=== PATIENT | female | born 1980 | race Caucasian/White ===

== ENCOUNTER 2017-10-10 16:52 | Emergency (ER) | payer BC ==
[2017-10-10 17:17] VITALS: BP 130/79
--- NOTE | 2017-10-10 17:24 | EDM.PDOC ---
ED HPI GENERAL MEDICAL PROBLEM - General Chief Complaint: Skin Complaint Stated Complaint: ILLNESS Time Seen by Provider: 10/10/17 17:20 Source of Information: Reports: Patient, Family History Limitations: Reports: No Limitations - History of Present Illness INITIAL COMMENTS - FREE TEXT/NARRATIVE: pt was seen in the clinic twice. The last time she was switched off of zovirax and she was put on another antiviral. She was just placed on predisone. She is on tramodol for pain and that is not working for her pain. Onset: Gradual, Other ( She has had the shingles for 1 week. ) Duration: Day(s):, Other ( not improving. ) Associated Symptoms: Reports: No Other Symptoms Right Ear Pain Score (Numeric/FACES): 7 - Related Data Allergies Allergy/AdvReac Type Severity Reaction Status Date / Time amoxicillin Allergy Rash Verified 10/10/17 17:08 cefprozil [From Cefzil] Allergy Rash Verified 10/10/17 17:08 duloxetine [From Cymbalta] Allergy Swelling Verified 10/10/17 17:08 NSAIDS (Non-Steroidal Allergy Swelling Verified 10/10/17 17:08 Anti-Inflamma Penicillins Allergy Rash Verified 10/10/17 17:08 pregabalin [From Lyrica] Allergy Swelling Verified 10/10/17 17:08 Home Meds: Home Meds Methocarbamol 750 mg PO Q6H PRN 03/16/16 [History] Cholecalciferol (Vitamin D3) [Vitamin D3] 1 tab PO DAILY 10/10/17 [History] Famciclovir 250 mg PO TID 10/10/17 [History] Fluticasone Propionate [Flonase] 1 spray NS BEDTIME PRN 10/10/17 [History] L.acidoph,Paracasei, B.lactis [Probiotic] 1 tab PO DAILY 10/10/17 [History] Multivitamin [Multi-Vitamin Daily] 1 tab PO DAILY 10/10/17 [History] Vitamin E 1 tab PO DAILY 10/10/17 [History] predniSONE [predniSONE] 20 mg PO DAILY 10/10/17 [History] traMADol HCl [Tramadol HCl] 50 mg PO Q6H 10/10/17 [History] Past Medical History HEENT History: Reports: Other (See Below) Other HEENT History: recurring shingles right ear and onto right face generally 1-2 times per year 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 Musculoskeletal History: Reports: Osteoarthritis, Other (See Below) Other Musculoskeletal History: lyme disease, chronic knee pain Neurological History: Reports: Other (See Below) Other Neuro History: bilateral Martinez's palsy, bilateral trigeminal neuralgia with surgery Immunologic History: Reports: Other (See Below) Other Immunologic History: lyme disease - Infectious Disease History Infectious Disease History: Reports: Chicken Pox, Shingles Social & Family History - Tobacco Use Smoking Status *Q: Never Smoker Years of Tobacco use: 10 Used Tobacco, but Quit: Yes Month Tobacco Last Used: nov Second Hand Smoke Exposure: No - Caffeine Use Caffeine Use: Reports: Coffee, Soda - Alcohol Use Days Per Week of Alcohol Use: 3 Number of Drinks Per Day: 2 Total Drinks Per Week: 6 - Recreational Drug Use Recreational Drug Use: No ED ROS GENERAL - Review of Systems Review Of Systems: See Below Constitutional: Reports: No Symptoms HEENT: Reports: Other ( rt facial pain from the shingles. ) Respiratory: Reports: No Symptoms Cardiovascular: Reports: No Symptoms Endocrine: Reports: No Symptoms GI/Abdominal: Reports: No Symptoms : Reports: No Symptoms Musculoskeletal: Reports: No Symptoms Skin: Reports: Rash ( facial pain), Other ( ) ED EXAM, SKIN/RASH Exam: See Below Text/Narrative:: pt has a rash on the rt side of her face. She has a history of recurrent shingles. She has very severe pain which is not being covered by the tramodol. She has not had a reoccurence for 1 year. Exam Limited By: No Limitations General Appearance: Alert, Anxious, Moderate Distress Ears: Normal TMs, Other (pt has fluid behind the rt drum. ) Nose: Normal Inspection Throat/Mouth: Normal Inspection Head: Other ( she has a rash which is improving because she has been on zovirax. She was just put on predisone. ) Neck: Normal Inspection Respiratory/Chest: No Respiratory Distress Cardiovascular: Regular Rate, Rhythm GI/Abdominal: Soft, Non-Tender Rectal (Female) Exam: Deferred Back Exam: Normal Inspection Extremities: Normal Inspection Neurological: Alert, Oriented, Normal Cognition Psychiatric: Anxious, Other ( uncomfortable appearing. ) Course - Vital Signs Last Recorded V/S: Last Vital Signs Temp 36.9 C 10/10/17 17:16 Pulse 112 H 10/10/17 17:16 Resp 16 10/10/17 17:16 BP 130/79 10/10/17 17:16 Pulse Ox 97 10/10/17 17:16 Departure - Departure Time of Disposition: 17:35 Disposition: Home, Self-Care 01 Condition: Fair Clinical Impression: Shingles - Discharge Information Referrals: Maribel Brar BREAD MOLDER [Primary Care Provider] - Forms: ED Department Discharge Care Plan Goals: cont all meds the same. for severe pain norco 7.5/325 # 10
[2017-10-10] MEDS ORDERED: Acetaminophen/HYDROcodone 325-5 MG Tab PO ONE (17:34)
== END 2017-10-10 17:58 | disposition home or self-care (01) ==
LOC: JP.ED 16:52
DX: B02.9 Zoster without complications (principal); Z87.891 Personal history of nicotine dependence; Z79.899 Other long term (current) drug therapy; Z88.0 Allergy status to penicillin; Z88.1 Allergy status to other antibiotic agents; Z88.8 Allergy status to other drugs, medicaments and biological substances
CPT/HCPCS: 99283; A9270

== ENCOUNTER 2018-03-18 19:33 | Emergency (ER) | payer BC ==
[2018-03-18 20:03] VITALS: BP 127/80
--- NOTE | 2018-03-18 20:25 | EDM.PDOC ---
ED HPI GENERAL MEDICAL PROBLEM - General Chief Complaint: Skin Complaint Stated Complaint: RIGHT EAR PAIN WITH SHINGLES Time Seen by Provider: 03/18/18 20:05 Source of Information: Reports: Patient, Old Records, RN History Limitations: Reports: No Limitations - History of Present Illness INITIAL COMMENTS - FREE TEXT/NARRATIVE: 37 yo female states she gets shingles near or in the R ear every year at this time. Has not had a shingles vaccine. Is taking antiviral medications already. Has an appt to see a neurologist about this in early March. No fever. Has some nausea from the pain. Onset: Gradual Onset Date: 03/17/18 Duration: Hour(s):, Constant Location: Reports: Face (R side) Quality: Reports: Burning Severity: Moderate Improves with: Reports: Other (Had a couple Newton that helped. Tramadol not helping. Gabapentin only helped a little with very high doses in the past. ) Worsens with: Reports: None Context: Reports: Other (Hx of bilateral trigeminal neuralgia and shingles to the R side of her face. 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 (see below) (Tramadol without relief.) - Related Data Allergies Allergy/AdvReac Type Severity Reaction Status Date / Time amoxicillin Allergy Rash Verified 03/18/18 19:56 cefprozil [From Cefzil] Allergy Rash Verified 03/18/18 19:56 duloxetine [From Cymbalta] Allergy Swelling Verified 03/18/18 19:56 NSAIDS (Non-Steroidal Allergy Swelling Verified 03/18/18 19:56 Anti-Inflamma Penicillins Allergy Rash Verified 03/18/18 19:56 pregabalin [From Lyrica] Allergy Swelling Verified 03/18/18 19:56 Home Meds: Home Meds Cholecalciferol (Vitamin D3) [Vitamin D3] 1 tab PO DAILY 10/10/17 [History] Fluticasone Propionate [Flonase] 1 spray NS BEDTIME PRN 10/10/17 [History] L.acidoph,Paracasei, B.lactis [Probiotic] 1 tab PO DAILY 10/10/17 [History] Multivitamin [Multi-Vitamin Daily] 1 tab PO DAILY 10/10/17 [History] Vitamin E 1 tab PO DAILY 10/10/17 [History] predniSONE 20 mg PO DAILY 10/10/17 [History] traMADol HCl [Tramadol HCl] 50 mg PO Q6H 10/10/17 [History] valACYclovir HCl [valACYclovir] 1 tab PO TID 03/18/18 [History] Past Medical History HEENT History: Reports: Other (See Below) Other HEENT History: recurring shingles right ear and onto right face generally 1-2 times per year 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 Musculoskeletal History: Reports: Osteoarthritis, Other (See Below) Other Musculoskeletal History: lyme disease, chronic knee pain Neurological History: Reports: Other (See Below) Other Neuro History: bilateral Martinez's palsy, bilateral trigeminal neuralgia with surgery Psychiatric History: Reports: ADD Immunologic History: Reports: Other (See Below) Other Immunologic History: lyme disease - Infectious Disease History Infectious Disease History: Reports: Chicken Pox, Shingles - Past Surgical History Musculoskeletal Surgical History: Reports: Arthroscopic Knee Social & Family History - Tobacco Use Smoking Status *Q: Never Smoker Years of Tobacco use: 10 Used Tobacco, but Quit: Yes Month/Year Tobacco Last Used: nov Second Hand Smoke Exposure: No - Caffeine Use Caffeine Use: Reports: Coffee, Soda - Alcohol Use Days Per Week of Alcohol Use: 3 Number of Drinks Per Day: 2 Total Drinks Per Week: 6 - Recreational Drug Use Recreational Drug Use: No ED ROS GENERAL - Review of Systems Review Of Systems: See Below Constitutional: Reports: No Symptoms HEENT: Reports: Other (Pain near/in the R ear.) Respiratory: Reports: No Symptoms Cardiovascular: Reports: No Symptoms Skin: Reports: Other (gets one or two small lesions in her R ear typically.) Neurological: Reports: No Symptoms ED EXAM, SKIN/RASH Exam: See Below Exam Limited By: No Limitations General Appearance: Alert, WD/WN, No Apparent Distress Eye Exam: Bilateral Eye: Normal Inspection Ears: Normal External Exam, Normal Canal, Hearing Grossly Normal, Normal TMs, Other (no rash noted.) Nose: Normal Inspection, Normal Mucosa, No Blood Throat/Mouth: Normal Inspection, Normal Lips, Normal Oropharynx, Normal Voice, No Airway Compromise Head: Atraumatic, Normocephalic Neck: Normal Inspection, Supple, Non-Tender Neurological: Alert, Oriented, CN II-XII Intact, Normal Cognition, No Motor/ Sensory Deficits Psychiatric: Normal Affect, Normal Mood Skin: Warm, Dry, Intact, Normal Color, No Rash Course - Vital Signs Last Recorded V/S: Last Vital Signs Temp 36.0 C 03/18/18 20:02 Pulse 95 03/18/18 20:02 Resp 14 03/18/18 20:02 BP 127/80 03/18/18 20:02 Pulse Ox 98 03/18/18 20:02 Departure - Departure Time of Disposition: 20:26 Disposition: Home, Self-Care 01 Condition: Good Clinical Impression: Right facial pain - Discharge Information Referrals: PCP,None [Primary Care Provider] - Forms: ED Department Discharge Additional Instructions: Take Newton as directed. F/U with your primary care provider on Tuesday. Keep your neurology appt.
== END 2018-03-18 20:26 | disposition home or self-care (01) ==
LOC: JP.ED 19:33
DX: R51 Headache (principal); Z87.891 Personal history of nicotine dependence; M19.90 Unspecified osteoarthritis, unspecified site; Z79.899 Other long term (current) drug therapy; Z88.0 Allergy status to penicillin; Z88.8 Allergy status to other drugs, medicaments and biological substances; Z88.1 Allergy status to other antibiotic agents
CPT/HCPCS: 99283

== ENCOUNTER 2019-06-25 16:25 | Emergency (ER) | payer BC ==
--- NOTE | 2019-06-25 17:11 | EDM.PDOC ---
ED HPI GENERAL MEDICAL PROBLEM - General Chief Complaint: Allergic Reaction Stated Complaint: BEE STING Time Seen by Provider: 06/25/19 16:50 Source of Information: Reports: Patient History Limitations: Reports: No Limitations - History of Present Illness INITIAL COMMENTS - FREE TEXT/NARRATIVE: Alert pleasant 39 year old female presents to ER after bee sting left distal third of forearm while playing with dog and sitting in her garden. Patient was feeling anxious and shaking therefore concerned regarding acute allergic reaction to bee sting per history. Patient went to give herself an EPI injection but the injector went off in her right thumb causing pain, cool to temperature and pale discoloration. Patient denies fever, facial swelling, tongue swelling, cough or difficulty breathing. Patient did give herself an other EPI injection in her left thigh. Patient has continued anxious feeling and increased heart rate due to allergic reaction and EPI dosing. Patient was given a ride to ER by her . Headache Pain Score (Numeric/FACES): 2 - Related Data Allergies Allergy/AdvReac Type Severity Reaction Status Date / Time amoxicillin Allergy Rash Verified 06/25/19 16:38 cefprozil [From Cefzil] Allergy Rash Verified 06/25/19 16:38 duloxetine [From Cymbalta] Allergy Swelling Verified 06/25/19 16:38 NSAIDS (Non-Steroidal Allergy Swelling Verified 06/25/19 16:38 Anti-Inflamma Penicillins Allergy Rash Verified 06/25/19 16:38 pregabalin [From Lyrica] Allergy Swelling Verified 06/25/19 16:38 Home Meds: Home Meds Cholecalciferol (Vitamin D3) [Vitamin D3] 1 tab PO DAILY 10/10/17 [History] Fluticasone Propionate [Flonase] 1 spray NS BEDTIME PRN 10/10/17 [History] L.acidoph,Paracasei, B.lactis [Probiotic] 1 tab PO DAILY 10/10/17 [History] Multivitamin [Multi-Vitamin Daily] 1 tab PO DAILY 10/10/17 [History] Vitamin E 1 tab PO DAILY 10/10/17 [History] predniSONE 20 mg PO DAILY 10/10/17 [History] traMADol HCl [Tramadol HCl] 50 mg PO Q6H PRN 10/10/17 [History] valACYclovir HCl [valACYclovir] 1 tab PO TID PRN 04/21/18 [History] EPINEPHrine [Epipen 2-Joe] 0.3 mg IJ DAILY PRN 30 Days #2 ml 06/25/19 [Rx] Past Medical History HEENT History: Reports: Other (See Below) Other HEENT History: recurring shingles right ear and onto right face generally 1-2 times per year Respiratory History: Reports: Asthma Other Respiratory History: as a child Gastrointestinal History: Reports: Other (See Below) 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 Musculoskeletal History: Reports: Osteoarthritis, Other (See Below) Other Musculoskeletal History: lyme disease, chronic knee pain Neurological History: Reports: Other (See Below) Other Neuro History: bilateral Martinez's palsy, bilateral trigeminal neuralgia with surgery Psychiatric History: Reports: ADD Immunologic History: Reports: Other (See Below) Other Immunologic History: lyme disease - Infectious Disease History Infectious Disease History: Reports: Shingles - Past Surgical History HEENT Surgical History: Reports: LASIK GI Surgical History: Reports: Colonoscopy Musculoskeletal Surgical History: Reports: Arthroscopic Knee Social & Family History - Tobacco Use Smoking Status *Q: Never Smoker Second Hand Smoke Exposure: No - Caffeine Use Caffeine Use: Reports: Soda Other Caffeine Use: 4 cans/bottles a day - Alcohol Use Days Per Week of Alcohol Use: 1 Number of Drinks Per Day: 2 Total Drinks Per Week: 2 - Recreational Drug Use Recreational Drug Use: No ED ROS ALLERGIC REACTION - Review of Systems Review Of Systems: ROS reveals no pertinent complaints other than HPI. ED EXAM GENERAL NO PERIP PULSE - Physical Exam Exam: See Below Exam Limited By: No Limitations General Appearance: Alert, WD/WN, No Apparent Distress Eye Exam: Bilateral Eye: EOMI, PERRL Ears: Normal External Exam Nose: Normal Inspection, Normal Mucosa Throat/Mouth: Normal Inspection, Normal Lips, Normal Teeth, Normal Gums, Normal Oropharynx, Normal Voice, No Airway Compromise Head: Atraumatic, Normocephalic Neck: Normal Inspection, Supple, Non-Tender, Full Range of Motion Respiratory/Chest: No Respiratory Distress, Lungs Clear, Normal Breath Sounds, No Accessory Muscle Use Cardiovascular: Normal Peripheral Pulses, Regular Rate, Rhythm GI/Abdominal: Soft, Non-Tender Extremities: Normal Inspection, Normal Range of Motion, Normal Capillary Refill , Arm Pain (Bee Sting left proximal forearm extensor surface (no stinger) and swelling/erythema improving), Mottled (Left Thumb due to EPI injection: cool to touch, decreased capillary refill and site of injection in fat pad of finger) Neurological: Alert, Oriented, CN II-XII Intact, Normal Cognition, Normal Gait, No Motor/Sensory Deficits Psychiatric: Normal Affect, Normal Mood Skin Exam: Warm, Dry, Intact, Normal Color, No Rash Course - Vital Signs Last Recorded V/S: Last Vital Signs Temp 36.7 C 06/25/19 16:42 Pulse 104 H 06/25/19 17:53 Resp 16 06/25/19 16:42 BP 131/75 06/25/19 17:53 Pulse Ox 99 06/25/19 17:53 - Orders/Labs/Meds Meds: Medications Discontinued Medications Generic Name Dose Route Start Last Admin Trade Name Freq PRN Reason Stop Dose Admin Diphenhydramine HCl 50 mg 06/25/19 17:28 06/25/19 17:40 Benadryl PO 06/25/19 17:29 50 mg ONETIME ONE Administration Departure - Departure Time of Disposition: 18:03 Disposition: Home, Self-Care 01 Clinical Impression: Bee sting, Bee sting allergy - Discharge Information Prescriptions: EPINEPHrine [Epipen 2-Joe] 0.3 mg IJ DAILY PRN 30 Days #2 ml PRN Reason: Allergies Instructions: Epinephrine Injection, Anaphylactic Reaction, Adult, Bee, Wasp, or Hornet Sting, Adult Referrals: Mohsen Lim NP [Primary Care Provider] - Forms: ED Department Discharge Additional Instructions: 1. Benadryl 25-50 mg every 6 hours as needed for swelling due to allergic reaction. 2. Ice to bee sting to help with swelling. 3. Warm compress to left Thumb (site of EPI Injection) error to help improve blood flow. 4. Ibuprofen 600-800mg every 6 hours with food as needed for pain and swelling. 5. Call PCP for recheck in 1-2 weeks if concerns or additional questions related to bee sting allergy or EPI Pen medication needs. THE DISCHARGE INSTRUCTIONS ARE INTENDED A COMPLEMENT TO AND NOT A REPLACEMENT FOR THE VERBAL INSTRUCTIONS THAT I HAVE PROVIDED YOU TODAY. AFTER GOING OVER THE PLAN OF CARE AND PROVIDING YOU WITH THE VERBAL INSTRUCTIONS. YOU HAVE HAD THE OPPORTUNITY TO ASK FURTHER QUESTIONS AND TO CLARIFY UNCERTAINTIES. THANK YOU FOR ALLOWING US TO ASSIST WITH YOUR MEDICAL CONCERNS AND NEEDS. - Problem List & Annotations (1) Bee sting SNOMED Code(s): 077335449, 818555516 Code(s): T63.441A - TOXIC EFFECT OF VENOM OF BEES, ACCIDENTAL, INIT Status : Acute Current Visit: Yes (2) Bee sting allergy SNOMED Code(s): 183836230 Code(s): Z91.030 - BEE ALLERGY STATUS Status: Acute Current Visit: Yes
[2019-06-25] MEDS ORDERED: diphenhydrAMINE 25 MG Cap PO ONE (17:28)
[2019-06-25 17:57] VITALS: BP 131/75; PULSE 104
== END 2019-06-25 18:35 | disposition home or self-care (01) ==
LOC: JP.ED 16:25
DX: T63.441A Toxic effect of venom of bees, accidental (unintentional), initial encounter (principal); Z91.030 Bee allergy status; Z88.1 Allergy status to other antibiotic agents; Z88.6 Allergy status to analgesic agent; Z88.8 Allergy status to other drugs, medicaments and biological substances; Z88.0 Allergy status to penicillin; Z79.899 Other long term (current) drug therapy
CPT/HCPCS: 99282; A9270

== ENCOUNTER 2021-06-11 07:14 | Emergency (ER) | payer BC ==
[2021-06-11] MEDS ORDERED: methylPREDNISolone Sodium Succinate 125 MG/2 ML SDV IM ONE (07:48)
--- NOTE | 2021-06-11 07:50 | EDM.PDOC ---
ED HPI GENERAL MEDICAL PROBLEM - General Chief Complaint: Allergic Reaction Stated Complaint: ALLERGIC REACTION Time Seen by Provider: 06/11/21 07:42 Source of Information: Reports: Patient, RN Notes Reviewed History Limitations: Reports: No Limitations - History of Present Illness INITIAL COMMENTS - FREE TEXT/NARRATIVE: 41-year-old female presents emergency department today following bee sting, she was outside stung three times she believes that while she does have allergic reaction to bees did have a feeling of shortness of breath and throat tightening does carry an EpiPen and used her EpiPen in her thigh also chewed up three Benadryl. She states she feels significantly better breathing is not quite back to normal throat feels fine. - Related Data Allergies Allergy/AdvReac Type Severity Reaction Status Date / Time amoxicillin Allergy Rash Verified 06/11/21 07:34 bee venom protein (honey bee) Allergy Anaphylactic Verified 06/11/21 07:34 Shock cefprozil [From Cefzil] Allergy Rash Verified 06/11/21 07:34 duloxetine [From Cymbalta] Allergy Swelling Verified 06/11/21 07:34 NSAIDS (Non-Steroidal Allergy Swelling Verified 06/11/21 07:34 Anti-Inflamma Penicillins Allergy Rash Verified 06/11/21 07:34 pregabalin [From Lyrica] Allergy Swelling Verified 06/11/21 07:34 Home Meds: Home Meds Cholecalciferol (Vitamin D3) [Vitamin D3] 1 tab PO DAILY 10/10/17 [History] Fluticasone Propionate [Flonase] 1 spray NS BEDTIME PRN 10/10/17 [History] L.acidoph,Paracasei, B.lactis [Probiotic] 1 tab PO DAILY 10/10/17 [History] Multivitamin [Multi-Vitamin Daily] 1 tab PO DAILY 10/10/17 [History] traMADol HCl [Tramadol HCl] 50 mg PO Q6H PRN 10/10/17 [History] valACYclovir HCl [valACYclovir] 1 tab PO TID PRN 03/18/18 [History] EPINEPHrine [Epipen 2-Joe] 0.3 mg IJ DAILY PRN 30 Days #2 ml 06/25/19 [Rx] Cetirizine [ZyrTEC] 10 mg PO DAILY 06/11/21 [History] Divalproex Sodium [Depakote] 500 mg PO BID 06/11/21 [History] Past Medical History HEENT History: Reports: Other (See Below) Other HEENT History: recurring shingles right ear and onto right face generally 1-2 times per year Respiratory History: Reports: Asthma Other Respiratory History: as a child Gastrointestinal History: Reports: Other (See Below) 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 Musculoskeletal History: Reports: Osteoarthritis, Other (See Below) Other Musculoskeletal History: lyme disease, chronic knee pain Neurological History: Reports: Other (See Below) Other Neuro History: bilateral Martinez's palsy, bilateral trigeminal neuralgia with surgery Psychiatric History: Reports: ADD Immunologic History: Reports: Other (See Below) Other Immunologic History: lyme disease - Infectious Disease History Infectious Disease History: Reports: Shingles - Past Surgical History HEENT Surgical History: Reports: LASIK GI Surgical History: Reports: Colonoscopy Musculoskeletal Surgical History: Reports: Arthroscopic Knee Social & Family History - Tobacco Use Tobacco Use Status *Q: Never Tobacco User - Caffeine Use Caffeine Use: Reports: Coffee, Energy Drinks, Soda Other Caffeine Use: 4 cans/bottles a day - Recreational Drug Use Recreational Drug Use: No ED ROS ALLERGIC REACTION - Review of Systems Review Of Systems: See Below Constitutional: Reports: No Symptoms HEENT: Reports: Throat Pain, Throat Swelling Respiratory: Reports: Shortness of Breath Cardiovascular: Reports: No Symptoms GI/Abdominal: Reports: No Symptoms ED EXAM GENERAL NO PERIP PULSE - Physical Exam Exam: See Below Exam Limited By: No Limitations General Appearance: Alert, WD/WN, No Apparent Distress Throat/Mouth: Normal Inspection, Normal Lips, Normal Teeth, Normal Gums, Normal Oropharynx, Normal Voice, No Airway Compromise Neck: Normal Inspection, Supple, Non-Tender, Full Range of Motion Respiratory/Chest: No Respiratory Distress, Lungs Clear, Normal Breath Sounds, No Accessory Muscle Use, Chest Non-Tender Cardiovascular: Regular Rate, Rhythm, No Murmur Course - Vital Signs Last Recorded V/S: Last Vital Signs Temp 97 F 06/11/21 07:32 Pulse 113 H 06/11/21 07:54 Resp 16 06/11/21 07:54 BP 124/64 06/11/21 07:54 Pulse Ox 100 06/11/21 07:54 - Orders/Labs/Meds Meds: Medications Discontinued Medications Generic Name Dose Route Start Last Admin Trade Name Freq PRN Reason Stop Dose Admin Methylprednisolone Sodium Succinate 125 mg 06/11/21 07:48 06/11/21 08:08 Methylprednisolone Sodium Succinate 125 Mg/2 Ml Sdv IM 06/11/21 07:49 125 mg ONETIME ONE Administration Departure - Departure Time of Disposition: 08:25 Disposition: Home, Self-Care 01 Condition: Fair Clinical Impression: Bee sting allergy - Discharge Information Instructions: Allergies, Adult, [id number] Referrals: Mohsen Lim CAMP COUNSELOR [Primary Care Provider] - Forms: ED Department Discharge Sepsis Event Note (ED) - Evaluation Sepsis Screening Result: No Definite Risk - Focused Exam Vital Signs: Vital Signs Temp Pulse Resp BP Pulse Ox 06/11/21 07:54 113 H 16 124/64 100 06/11/21 07:32 97 F 109 H 16 147/75 H 98 06/11/21 07:29 97 F 109 H 16 147/75 H 98 - Assessment/Plan Plan: Assessment Acuity = acute Site and laterality = allergic reaction Etiology = bee sting Manifestations = none Location of injury = Home Lab values = none Plan Was provided Solu-Medrol in the emergency department, she does have additional EpiPen follow-up with primary care as needed, recommended observation for 4 hours but she declined 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
[2021-06-11 08:04] VITALS: BP 124/64
[2021-06-11 08:10] VITALS: PULSE 113
== END 2021-06-11 08:33 | disposition home or self-care (01) ==
LOC: JP.ED 07:14
DX: T63.441A Toxic effect of venom of bees, accidental (unintentional), initial encounter (principal); Z88.0 Allergy status to penicillin; Z91.030 Bee allergy status; Z88.8 Allergy status to other drugs, medicaments and biological substances
CPT/HCPCS: 96372; 99282; J2930

== ENCOUNTER 2021-07-12 14:07 | Emergency (ER) | payer BC ==
[2021-07-12] MEDS ORDERED: methylPREDNISolone Sodium Succinate 125 MG/2 ML SDV IM ONE (14:41)
--- NOTE | 2021-07-12 14:46 | EDM.PDOC ---
ED HPI GENERAL MEDICAL PROBLEM - General Chief Complaint: Bite:Animal, Insect Stated Complaint: STUNG BY SOMETHING-ALLERIGC REACTION Time Seen by Provider: 07/12/21 14:41 Source of Information: Reports: Patient History Limitations: Reports: No Limitations - History of Present Illness INITIAL COMMENTS - FREE TEXT/NARRATIVE: pt was stung about 1/2 hour ago by a wasp. She does have a epiopen because she has had reactions in the past. She took her epipen and she took 75 mg of benadryl. She has slight swelling arouind the site. She has no hives. She is feeling dizzy and slightly sob. She has good o2 sats. She was stung about 1 month ago multiple times. Onset: Today, Sudden Duration: Minutes:, Other ( she was stung about 1/2 hour ago. ) Location: Reports: Upper Extremity, Right Associated Symptoms: Reports: No Other Symptoms, Shortness of Breath - Related Data Allergies Allergy/AdvReac Type Severity Reaction Status Date / Time amoxicillin Allergy Rash Verified 07/12/21 14:35 bee venom protein (honey bee) Allergy Anaphylactic Verified 07/12/21 14:35 Shock cefprozil [From Cefzil] Allergy Rash Verified 07/12/21 14:35 duloxetine [From Cymbalta] Allergy Swelling Verified 07/12/21 14:35 NSAIDS (Non-Steroidal Allergy Swelling Verified 07/12/21 14:35 Anti-Inflamma Penicillins Allergy Rash Verified 07/12/21 14:35 pregabalin [From Lyrica] Allergy Swelling Verified 07/12/21 14:35 Home Meds: Home Meds Cholecalciferol (Vitamin D3) [Vitamin D3] 1 tab PO DAILY 10/10/17 [History] Fluticasone Propionate [Flonase] 1 spray NS BEDTIME PRN 10/10/17 [History] L.acidoph,Paracasei, B.lactis [Probiotic] 1 tab PO DAILY 10/10/17 [History] Multivitamin [Multi-Vitamin Daily] 1 tab PO DAILY 10/10/17 [History] traMADol HCl [Tramadol HCl] 50 mg PO Q6H PRN 10/10/17 [History] valACYclovir HCl [valACYclovir] 1 tab PO TID PRN 03/18/18 [History] EPINEPHrine [Epipen 2-Joe] 0.3 mg IJ DAILY PRN 30 Days #2 ml 06/25/19 [Rx] Cetirizine [ZyrTEC] 10 mg PO DAILY 06/11/21 [History] Divalproex Sodium [Depakote] 500 mg PO BID 06/11/21 [History] Past Medical History HEENT History: Reports: Other (See Below) Other HEENT History: recurring shingles right ear and onto right face generally 1-2 times per year Respiratory History: Reports: Asthma Other Respiratory History: as a child Gastrointestinal History: Reports: Other (See Below) 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 Musculoskeletal History: Reports: Osteoarthritis, Other (See Below) Other Musculoskeletal History: lyme disease, chronic knee pain Neurological History: Reports: Other (See Below) Other Neuro History: bilateral Martinez's palsy, bilateral trigeminal neuralgia with surgery Psychiatric History: Reports: ADD Immunologic History: Reports: Other (See Below) Other Immunologic History: lyme disease - Infectious Disease History Infectious Disease History: Reports: Shingles - Past Surgical History HEENT Surgical History: Reports: LASIK GI Surgical History: Reports: Colonoscopy Musculoskeletal Surgical History: Reports: Arthroscopic Knee Social & Family History - Tobacco Use Tobacco Use Status *Q: Unknown Ever Used Tobacco - Caffeine Use Caffeine Use: Reports: Coffee, Energy Drinks, Soda Other Caffeine Use: 4 cans/bottles a day ED ROS GENERAL - Review of Systems Review Of Systems: See Below Constitutional: Reports: Other (pt has dizziness and sob. ) HEENT: Reports: No Symptoms Respiratory: Reports: Shortness of Breath Cardiovascular: Reports: No Symptoms Endocrine: Reports: No Symptoms GI/Abdominal: Reports: No Symptoms : Reports: No Symptoms Musculoskeletal: Reports: No Symptoms ED EXAM, ANIMAL BITE - Physical Exam Exam: See Below Text/Narrative:: pt has a bee sting on the rt upper arm. She is feelingdizzy and slightly sob. She is not sounding wheezy. Exam Limited By: No Limitations General Appearance: Alert, Anxious, Mild Distress Ears: Normal TMs Nose: Normal Inspection Throat/Mouth: Normal Inspection Head: Atraumatic Neck: Normal Inspection Respiratory/Chest: No Respiratory Distress, Other (no definite wheezes) Cardiovascular: Regular Rate, Rhythm GI/Abdominal: Soft, Non-Tender Back Exam: Normal Inspection Extremities: Other ( slight swelling at the bee sting site. ) Neurological: Alert, Oriented, Normal Cognition Psychiatric: Anxious Course - Vital Signs Last Recorded V/S: Last Vital Signs Temp 36.7 C 07/12/21 14:40 Pulse 89 07/12/21 14:40 Resp 16 07/12/21 14:40 BP 126/61 07/12/21 14:40 Pulse Ox 97 07/12/21 14:40 - Orders/Labs/Meds Meds: Medications Discontinued Medications Generic Name Dose Route Start Last Admin Trade Name Pily PRMarry Reason Stop Dose Admin Methylprednisolone Sodium Succinate 125 mg 07/12/21 14:41 07/12/21 14:47 Methylprednisolone Sodium Succinate 125 Mg/2 Ml Sdv IM 07/12/21 14:42 125 mg ONETIME ONE Administration - Re-Assessments/Exams Free Text/Narrative Re-Assessment/Exam: 07/12/21 14:53 pt was given solumedrol 125 im. She states she has had this before and it helped the reaction but she had difficulty sleeping for about 3 days. She continues to have no hives. 07/12/21 15:08 pt is feeling better after the solumedrol Departure - Departure Time of Disposition: 15:08 Disposition: Home, Self-Care 01 Condition: Fair Clinical Impression: Allergic reaction to bee sting - Discharge Information Referrals: Mohsen Lim NP [Primary Care Provider] - Forms: ED Department Discharge Care Plan Goals: Take on more dose of 50 mg of benadryl, pt has epipens at home, rtc if problems. Sepsis Event Note (ED) - Evaluation Sepsis Screening Result: No Definite Risk - Focused Exam Vital Signs: Vital Signs Temp Pulse Resp BP Pulse Ox 07/12/21 14:40 36.7 C 89 16 126/61 97 07/12/21 14:33 36.7 C 89 16 126/61 97
[2021-07-12 15:15] VITALS: BP 118/52; PULSE 91
== END 2021-07-12 15:16 | disposition home or self-care (01) ==
LOC: JP.ED 14:07
DX: T63.441A Toxic effect of venom of bees, accidental (unintentional), initial encounter (principal); Z88.0 Allergy status to penicillin; Z91.030 Bee allergy status; Z88.1 Allergy status to other antibiotic agents; Z88.8 Allergy status to other drugs, medicaments and biological substances; Z88.6 Allergy status to analgesic agent; Z79.899 Other long term (current) drug therapy
CPT/HCPCS: 96372; 99283; J2930

== ENCOUNTER 2021-11-06 17:14 | Emergency (ER) | payer BC ==
[2021-11-06 18:07] VITALS: BP 117/55; PULSE 77
[2021-11-06] MEDS ORDERED: Bacitracin Oint 1 GM U/D Packet TOP ONE (18:11)
--- NOTE | 2021-11-06 18:35 | EDM.PDOC ---
ED HPI GENERAL MEDICAL PROBLEM - General Chief Complaint: Laceration Stated Complaint: CUT ON LT THIGH Time Seen by Provider: 11/06/21 18:15 Source of Information: Reports: Patient, Old Records History Limitations: Reports: No Limitations - History of Present Illness INITIAL COMMENTS - FREE TEXT/NARRATIVE: 41 yo female dropped a glass casserole and it cut her L anterior thigh. Injury was about an hour ago. Is here now for repair. Tetanus is UTD. 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) (wound cleaning) - Related Data Allergies Allergy/AdvReac Type Severity Reaction Status Date / Time amoxicillin Allergy Rash Verified 07/12/21 14:35 bee venom protein (honey bee) Allergy Anaphylactic Verified 07/12/21 14:35 Shock cefprozil [From Cefzil] Allergy Rash Verified 07/12/21 14:35 duloxetine [From Cymbalta] Allergy Swelling Verified 07/12/21 14:35 NSAIDS (Non-Steroidal Allergy Swelling Verified 07/12/21 14:35 Anti-Inflamma Penicillins Allergy Rash Verified 07/12/21 14:35 pregabalin [From Lyrica] Allergy Swelling Verified 07/12/21 14:35 Home Meds: Home Meds Cholecalciferol (Vitamin D3) [Vitamin D3] 1 tab PO DAILY 10/10/17 [History] Fluticasone Propionate [Flonase] 1 spray NS BEDTIME PRN 10/10/17 [History] L.acidoph,Paracasei, B.lactis [Probiotic] 1 tab PO DAILY 10/10/17 [History] Multivitamin [Multi-Vitamin Daily] 1 tab PO DAILY 10/10/17 [History] traMADol HCl [Tramadol HCl] 50 mg PO Q6H PRN 10/10/17 [History] valACYclovir HCl [valACYclovir] 1 tab PO TID PRN 03/18/18 [History] EPINEPHrine [Epipen 2-Joe] 0.3 mg IJ DAILY PRN 30 Days #2 ml 06/25/19 [Rx] Cetirizine [ZyrTEC] 10 mg PO DAILY 06/11/21 [History] Divalproex Sodium [Depakote] 500 mg PO BID 06/11/21 [History] Past Medical History HEENT History: Reports: Other (See Below) Other HEENT History: recurring shingles right ear and onto right face generally 1-2 times per year Respiratory History: Reports: Asthma Other Respiratory History: as a child Gastrointestinal History: Reports: Other (See Below) 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 Musculoskeletal History: Reports: Osteoarthritis, Other (See Below) Other Musculoskeletal History: lyme disease, chronic knee pain Neurological History: Reports: Other (See Below) Other Neuro History: bilateral Martinez's palsy, bilateral trigeminal neuralgia with surgery Psychiatric History: Reports: ADD Immunologic History: Reports: Other (See Below) Other Immunologic History: lyme disease - Infectious Disease History Infectious Disease History: Reports: Shingles - Past Surgical History HEENT Surgical History: Reports: LASIK GI Surgical History: Reports: Colonoscopy Musculoskeletal Surgical History: Reports: Arthroscopic Knee Social & Family History - Tobacco Use Tobacco Use Status *Q: Never Tobacco User - Caffeine Use Caffeine Use: Reports: Coffee, Soda, Tea Other Caffeine Use: 4 cans/bottles a day - Recreational Drug Use Recreational Drug Use: No ED ROS GENERAL - Review of Systems Review Of Systems: See Below Constitutional: Reports: No Symptoms Musculoskeletal: Reports: No Symptoms Skin: Reports: Wound (L anterior thigh) Neurological: Reports: No Symptoms ED EXAM, SKIN/RASH Exam: See Below Exam Limited By: No Limitations General Appearance: Alert, WD/WN, No Apparent Distress Extremities: Other (wound L anterior thigh) Neurological: Alert, Oriented, CN II-XII Intact, Normal Cognition, No Motor/Sensory Deficits Psychiatric: Normal Affect, Normal Mood Skin: Warm, Dry, Normal Color, No Rash, Wound/Incision (7 cm linear lac L anterior thigh). No: Intact Location, Skin: Lower Extremity, Left Characteristics: Linear Associated features: No: Warmth, Induration, Lymphangitis, Inflammation ED SKIN PROCEDURES - Laceration/Wound Repair Left Anterior Thigh Appearance: Subcutaneous, Linear, Clean Distal NVT: Neuro & Vascular Intact, No Tendon Injury Anesthetic Type: Local Local Anesthesia - Lidocaine (Xylocaine): 1% with EPI Local Anesthetic Volume: Other (10 ml) Skin Prep: Saline Saline Irrigation (cc's): 15 Closed with: Sutures Lac/Wound length In cm: 7 Suture Size: 5-0 # of Sutures: 7 Suture Type: Nylon, Interrupted, Simple Drain Placement: No Sterile Dressing Applied: Nurse Tetanus Status Addressed: Yes Complications: No Course - Vital Signs Last Recorded V/S: Last Vital Signs Temp 36.5 C 11/06/21 18:22 Pulse 77 11/06/21 18:22 Resp 16 11/06/21 18:22 BP 117/55 L 11/06/21 18:22 Pulse Ox 98 11/06/21 18:22 - Orders/Labs/Meds Meds: Medications Discontinued Medications Generic Name Dose Route Start Last Admin Trade Name Freq PRN Reason Stop Dose Admin Bacitracin 1 dose 11/06/21 18:11 Bacitracin Oint 1 Gm U/D Packet TOP 11/06/21 18:12 ONETIME ONE Departure - Departure Time of Disposition: 18:40 Disposition: Home, Self-Care 01 Condition: Good Clinical Impression: Laceration of left thigh Qualifiers: Encounter type: initial encounter Qualified Code(s): S71.112A - Laceration without foreign body, left thigh, initial encounter - Discharge Information *PRESCRIPTION DRUG MONITORING PROGRAM REVIEWED*: Not Applicable *COPY OF PRESCRIPTION DRUG MONITORING REPORT IN PATIENT ALEX: Not Applicable Instructions: Laceration Care, Adult, [id number] Referrals: PCP,None [Primary Care Provider] - Additional Instructions: Keep wound clean for 3 days. Clean wound twice daily with soap and water. Dry. Apply antibiotic ointment and a new dressing. Stitches out in 9 days. Recheck for signs of infection. Sepsis Event Note (ED) - Evaluation Sepsis Screening Result: No Definite Risk - Focused Exam Vital Signs: Vital Signs Temp Pulse Resp BP Pulse Ox 11/06/21 18:22 36.5 C 77 16 117/55 L 98 11/06/21 18:06 36.5 C 77 16 117/55 L 98
== END 2021-11-06 18:47 | disposition home or self-care (01) ==
LOC: JP.ED 17:14
DX: S71.112A Laceration without foreign body, left thigh, initial encounter (principal); Z88.0 Allergy status to penicillin; Z88.1 Allergy status to other antibiotic agents; Z88.8 Allergy status to other drugs, medicaments and biological substances; Z91.030 Bee allergy status; W20.8XXA Other cause of strike by thrown, projected or falling object, initial encounter
CPT/HCPCS: 12002; 99282-25

== ENCOUNTER 2025-08-28 17:21 | Emergency (ER) | payer BC, MEDICAID ==
[2025-08-28] MEDS: Sodium Chloride 0.9% 10 ML Syringe FLUSH PRN (18:52)
[2025-08-28] MEDS: diphenhydrAMINE 50 MG/ML SDV IVPUSH ONE (18:52)
[2025-08-28] MEDS: Ketorolac 30 MG/ML SDV IVPUSH ONE (18:53)
[2025-08-28 19:16] LABS: BASOPHILS ABSOLUTE AUTO 0.04 K/uL (0.00-0.10); BASOPHILS PERCENT AUTO 0.4 % (0.1-1.3); EOSINOPHILS PERCENT AUTO 0.0 % (0.0-5.4); IMMATURE GRAN ABSOLUTE AUTO 0.03 K/uL (0.00-0.23); IMMATURE GRAN PERCENT AUTO 0.3 % (0.0-0.7); LYMPHOCYTES ABSOLUTE AUTO 2.23 K/uL (0.8-3.3); LYMPHOCYTES PERCENT AUTO 24.1 % (11.4-47.7); MONOCYTES ABSOLUTE AUTO 0.54 K/uL (0.20-0.90); MONOCYTES PERCENT AUTO 5.8 % (3.3-12.6); NEUTROPHILS ABSOLUTE AUTO 6.42 K/uL (1.0-7.6); NEUTROPHILS PERCENT AUTO 69.4 % (40.0-78.1); PLATELET COUNT,PLT 151 K/uL (130-375); RED BLOOD CELL COUNT 4.30 M/uL (3.77-5.24); WHITE BLOOD CELL COUNT,WBC 9.3 K/uL (3.2-11.0)
[2025-08-28 19:19] LABS: EOSINOPHILS ABSOLUTE AUTO 0.00 K/uL (0.00-0.40)
[2025-08-28 19:36] VITALS: BP 102/55; PULSE 61
[2025-08-28 19:38] LABS: A/G RATIO 1.1 (1.2-2.2); ALANINE AMINOTRANSFERASE,ALT 17 U/L (12-78); ASPARTATE AMNIOTRANSFERASE,AST 14 U/L (15-37); BILIRUBIN TOTAL 0.8 mg/dL (0.2-1.0); BLOOD UREA NITROGEN,BUN 7 mg/dL (7-18); CARBON DIOXIDE,CO2 29 mmol/L (21-32); CHLORIDE,CL 103 mmol/L (100-108); CREATININE 0.8 mg/dL (0.6-1.0); EST CRCL DRUG DOSING (CG) 98.21 mL/min; ESTIMATED GFR 92 mL/min (>60); GLUCOSE RANDOM 90 mg/dL (74-106); POTASSIUM,K 3.5 mmol/L (3.6-5.2); PROTEIN TOTAL,TP 7.3 g/dL (6.4-8.2); SODIUM,NA 139 mmol/L (140-148)
== END 2025-08-28 20:36 | disposition home or self-care (01) ==
LOC: JP.ED 17:21
DX: G43.909 Migraine, unspecified, not intractable, without status migrainosus (principal); J45.909 Unspecified asthma, uncomplicated; M19.90 Unspecified osteoarthritis, unspecified site; Z79.899 Other long term (current) drug therapy; Z79.51 Long term (current) use of inhaled steroids; Z88.1 Allergy status to other antibiotic agents; Z88.0 Allergy status to penicillin; Z91.030 Bee allergy status
CPT/HCPCS: 36415; 80053; 83605; 85025; 96361; 96374; 96375; 99283; J1200; J1790; J1885; J7030

== ENCOUNTER 2025-10-12 12:28 | Emergency (ER) | payer MEDICAID ==
[2025-10-12 14:23] VITALS: BP 121/61; PULSE 91
== END 2025-10-12 15:31 | disposition home or self-care (01) ==
LOC: JP.ED 12:28
DX: L71.9 Rosacea, unspecified (principal); T37.5X5A Adverse effect of antiviral drugs, initial encounter; L03.211 Cellulitis of face; J45.909 Unspecified asthma, uncomplicated; Z79.899 Other long term (current) drug therapy; Z88.0 Allergy status to penicillin; Z91.030 Bee allergy status; Z88.6 Allergy status to analgesic agent; Z88.8 Allergy status to other drugs, medicaments and biological substances
CPT/HCPCS: 99282